=== PATIENT | male | born 1940 | race Caucasian/White ===

== ENCOUNTER 2017-01-21 13:29 | Inpatient (IN) | payer MEDICARE ==
[2017-01-18 10:39] LABS: BASOPHILS 0.5 %; BASOPHILS ABSOLUTE 0.03 10/3/uL (0.0-0.16); EOSINOPHILS 3.7 %; EOSINOPHILS ABSOLUTE 0.23 10/3/uL (0.0-0.53); HEMATOCRIT 43.9 % (40.0-51.0); HEMOGLOBIN 15.5 g/dL (13.6-17.8); IMMATURE GRANULOCYTES 0.3 %; IMMATURE GRANULOCYTES ABSOLUTE 0.02 10/3/uL (0.0-0.11); LYMPHOCYTES 39.5 %; LYMPHOCYTES ABSOLUTE 2.43 10/3/uL (0.67-4.30); MEAN CORPUSCULAR HEMOGLOB 32.3 pg (26.0-34.0); MEAN PLATELET VOLUME 10.3 fL (9.2-13.0); MONOCYTES 9.1 %; MONOCYTES ABSOLUTE 0.56 10/3/uL (0.21-1.20); NEUTROPHILS 46.9 %; NEUTROPHILS ABSOLUTE 2.88 10/3/uL (2.02-8.40); PLATELET COUNT 214 10/3/uL (150-400); RBC DISTRIBUTION WIDTH 12.4 % (12.0-16.0); WHITE BLOOD CELLS 6.2 10/3/uL (4.5-10.5)
[2017-01-18 10:40] LABS: MANUAL DIFF NO %; MEAN CORPUS HGB CONC 35.3 g/dL (32.0-36.0); MEAN CORPUSCULAR VOLUME 91.5 fL (80-100)
[2017-01-18 10:46] LABS: INTERNATIONAL NORMAL RATI 1.1 UNITS (-); PARTIAL THROMBO TIME 28.1 SEC (22.5-37.2); PROTIME (NOT ORD) 14.1 SEC (12.0-14.5)
[2017-01-18 10:56] LABS: ALKALINE PHOSPHATASE 67 U/L (45-117); BUN (BLOOD UREA NITROGEN) 12 MG/DL (6-23); CALCIUM, SERUM 8.8 MG/DL (8.5-10.4); CHLORIDE, SERUM 108 MMOL/L (96-112); CO2 (CARBON DIOXIDE) 22 MMOL/L (24-34); GFR AFRICAN AMERICAN 101 ML/MIN (>=60); GFR NON AFRICAN AMERICAN 87 ML/MIN (>=60); GLOBULIN 4.1 G/DL (2.5-4.1); GLUCOSE, SERUM 113 MG/DL (60-99); SGOT(AST) 55 U/L (5-40); SGPT(ALT) 48 U/L (5-65); SODIUM, SERUM 142 MMOL/L (135-148); TOTAL PROTEIN 8.1 G/DL (6.0-8.5)
--- NOTE | ~2017-01-21 | DS ---
Discharge Summary [facility] [address] [place]. [address] NAME: ARIADNA ROBLERO : 42 STATUS : DIS IN PAT#: [id number] AGE: 76 ADM/REG DATE : 01/21/17 MR#: [id number] REPORT SERV DATE: 02/04/17 DICTATED BY: PADMINI RIOS III DATE: 02/03/17 REPORT STATUS : Draft TRANSCRIBED BY: KRISHNA DATE: 02/03/17 Data Collection from hospitalization DISCHARGE DIAGNOSES: 1. Tubular adenoma of the right colon - too large to be removed endoscopically. 2. Hypertension. 3. Hyperlipidemia. 4. Arthritis. 5. Hypothyroidism. CONSULTATIONS: None. PROCEDURES PERFORMED: 1. Laparoscopic right colectomy with resection of terminal ileum and ileocolonic anastomosis on 01/21/2017. 2. CT scan of the abdomen and pelvis without contrast on 01/24/2017. PATHOLOGY: Terminal ileum and colon, right colectomy - 5.2 cm tubulovillous adenoma. No high-grade dysplasia seen. Margins free. Chronic diverticular disease. Nine benign lymph nodes. Normal appendix. MEDICATIONS: Lopid 600 mg twice a day, levothyroxine 75 mcg daily, Cozaar 100 mg at bedtime, Percocet 7.5/325 one tablet three times a day as needed, and Zocor 10 mg every morning. CONDITION AT DISCHARGE: Stable. DISPOSITION: The patient was discharged home on a full-liquid diet that would be advanced as tolerated and activities as instructed. He would follow up with me on 02/11/2017. HOSPITAL COURSE: This is a 76-year-old man who was recently found to have a 3 cm tubular adenoma of the right colon, this was distal to the ileocecal valve. It was too large to be removed endoscopically. It was felt that laparoscopic right colectomy and possible laparotomy was indicated. Treatment options were discussed and it was elected to proceed with surgical intervention. He was admitted to the hospital at this time for further evaluation and treatment. Upon admission, he was taken to the operating room where he underwent the above-mentioned procedure. He tolerated this well, and there were no complications. On postop day #1, he had no new complaints. He was alert and comfortable. He remained afebrile. His Young catheter was removed. Clear liquids were started. On 01/23/2017, he did complain of some cramping. Reglan was given. Dulcolax was provided. We encouraged him to ambulate. Heparin was discontinued secondary to possible blood in his stool. He was evaluated by Physical Therapy. On 01/24/2017, CT scan of the abdomen and pelvis without contrast was performed. He did complain of some abdominal pain and distention. He remained afebrile. Reglan was continued. We encouraged him to ambulate. The next day, he was passing some gas per rectum. His abdomen was a little distended. Dulcolax and Reglan were continued. On Discharge Summary [address] [place]. [address] NAME: ARIADNA ROBLERO : 42 STATUS : DIS IN PAT#: [id number] AGE: 76 ADM/REG DATE : 01/21/17 MR#: [id number] REPORT SERV DATE: 02/04/17 DICTATED BY: PADMINI RIOS III DATE: 02/03/17 REPORT STATUS : Draft TRANSCRIBED BY: KRISHNA DATE: 02/03/17 01/26/2017, he had some nausea and vomiting. An NG tube was placed. His abdomen was soft. He was being held n.p.o. with the NG tube. Repeat KUB was going to be performed. The next day, he was feeling much better. He had a large bowel movement x3. He was passing gas. The NG tube was removed. Clear liquids were started. Discharge planning was performed. On 01/28/2017, he felt well and wanted to go home. He was tolerating liquids and passing stool. He had no nausea or vomiting. Discharge instructions were given. Due to his improved and stable condition, he was discharged home with the above-stated instructions. Information collected by: Camila Barakat I submit the above information as my discharge summary. WILIAM/KRISHNA Padmini Rios III, M.D. / [id number] CC: Padmini Rios III, M.D. DAILY,KRIS
--- NOTE | ~2017-01-21 | PREOPHP ---
PreOp History and Physical [id number] [place]. [address] NAME: ARIADNA ROBLERO : 42 STATUS : ADM IN [facility]#: [id number] AGE: 76 ADM/REG DATE : 01/21/17 MR#: [id number] REPORT SERV DATE: 01/24/17 DICTATED BY: PADMINI RIOS III DATE: 01/13/17 REPORT STATUS : Draft TRANSCRIBED BY: MODSharee DATE: 01/13/17 HISTORY OF PRESENT ILLNESS: This 76-year-old male comes to the operating room for laparoscopic right colectomy, possible laparotomy, for a large tubular adenoma of the right colon. The patient has a history of diarrhea for several months. Workup for this diarrhea included a colonoscopy and was found to have a large 3 cm mass in the cecum. This is too large to be removed endoscopically. Biopsy shows this to be an adenoma. The area was tattooed by the endoscopist. The patient comes to the operating room now for laparoscopic right colectomy, possible laparotomy. PAST MEDICAL HISTORY: 1. Hypertension. 2. Hyperlipidemia. 3. Arthritis. MEDICATIONS: Gemfibrozil, losartan, simvastatin, levofloxacin. FAMILY HISTORY: Positive for colon cancer. SOCIAL HISTORY: No history of tobacco use. The patient does have a history of alcohol use. REVIEW OF SYSTEMS: The patient's 14-point review of systems is otherwise unremarkable except for diarrhea. ALLERGIES: PENICILLIN AND SULFA. PHYSICAL EXAMINATION: GENERAL: Reveals a male, in no acute distress. He is alert and oriented x3. VITAL SIGNS: Blood pressure 142/84, pulse 90, temp 98.6. HEENT: Unremarkable. Cranial nerves II through XII are normal. LUNGS: Clear. CARDIAC: Normal. ABDOMEN: Soft. Nontender. EXTREMITIES: Normal. LABORATORY DATA: Colonoscopy shows a 3 cm mass in the cecum just beyond the ileocecal valve. Biopsy shows this to be a tubular adenoma. ASSESSMENT: 1. A 76-year-old male with biopsy-proven tubular adenoma of the right colon, too large to be removed endoscopically. 2. Hypertension. 3. Hyperlipidemia. 4. Arthritis. PLAN: The patient comes to the operating room now for laparoscopic right colectomy, possible laparotomy. This procedure, the risks, benefits, and alternatives, including not limited to the risk for bleeding, infection, enterotomy, injury to any abdominal structure, postop PreOp History and Physical [address] [address] NAME: ARIADNA ROBLERO : 42 STATUS : ADM IN [facility]#: [id number] AGE: 76 ADM/REG DATE : 01/21/17 MR#: [id number] REPORT SERV DATE: 01/24/17 DICTATED BY: PADMINI RIOS III DATE: 01/13/17 REPORT STATUS : Draft TRANSCRIBED BY: KRISHNA DATE: 01/13/17 small bowel obstruction or ileus, anastomotic leak, requiring reoperation with ileostomy, ureteral injury, possible need for laparotomy, and unforeseen complications including deep venous thrombosis, pulmonary embolus, myocardial infarction, stroke, pneumonia and , have been fully and completely explained to the patient at length prior to surgery. The fact that this is a major operation with risk for major morbidity and mortality has been explained. Expected length of the recovery has been explained. The patient's questions have been answered. He clearly understands the risks and agrees to surgery as planned. ELVER/KRISHNA Padmini Rios III, M.D. / [phone]
--- NOTE | ~2017-01-21 | OP ---
Record Of Operation [facility] [address] [place]. [address] NAME: ARIADNA ROBLERO : 42 STATUS : ADM IN [facility]#: [id number] AGE: 76 ADM/REG DATE : 01/21/17 MR#: [id number] REPORT SERV DATE: 01/21/17 DICTATED BY: PADMINI RIOS III DATE: 01/21/17 REPORT STATUS : Draft TRANSCRIBED BY: MODL DATE: 01/21/17 DATE OF PROCEDURE: 01/21/2017 PREOPERATIVE DIAGNOSIS: Tubular adenoma of the right colon, too large to be removed endoscopically. POSTOPERATIVE DIAGNOSIS: Tubular adenoma of the right colon, too large to be removed endoscopically. PROCEDURE: Laparoscopic right colectomy with resection of terminal ilium and ileocolonic anastomosis. SURGEON: Padmini Rios M.D. ANESTHESIA: General with intubation. COMPLICATIONS: None. ESTIMATED BLOOD LOSS: 25 mL. SPECIMEN: Segment of terminal ileum and right colon. DRAINS: [place] in subcutaneous tissue. LAP AND SPONGE COUNT: Correct x3. BRIEF HISTORY: This 76-year-old male was recently found to have a 3 cm tubular adenoma of the right colon. This was distal to the ileocecal valve. It was too large to be removed endoscopically. It was felt that a laparoscopic right colectomy, possible laparotomy, was indicated. This procedure, the risks, benefits, and alternatives, including but not limited to the risk for bleeding, infection, enterotomy, injury to any abdominal structure, postop small bowel obstruction, ileus, incisional hernia, dehiscence, anastomotic leak, requiring reoperation with ileostomy, ureteral injury, possible need for laparotomy, and unforeseen complications including deep venous thrombosis, pulmonary embolus, myocardial infarction, stroke, pneumonia, , were fully and completed explained to the patient's family prior to surgery. The fact that this was a major operation with risk for major morbidity and mortality has been explained as well as expected length of recovery of both open and laparoscopic procedures. The patient had questions, which were answered. He fully understood the risks and agreed to surgery as planned. DESCRIPTION OF PROCEDURE: After being properly identified and after discussing risks of surgery with the patient's family again in the preoperative area and after an appropriate bowel preparation at home, the patient was taken to the operating room and placed in the supine position on the operating room table. General anesthesia was administered and he was intubated without difficulty. A Young catheter was inserted. The abdomen was prepped and draped sterilely in the usual fashion. After an appropriate "time-out" per [facility] standards, Record Of Operation [facility] [address] [place]. [address] NAME: ARIADAN ROBLERO : 42 STATUS : ADM IN PAT#: [id number] AGE: 76 ADM/REG DATE : 01/21/17 MR#: [id number] REPORT SERV DATE: 01/21/17 DICTATED BY: PADMINI RIOS III DATE: 01/21/17 REPORT STATUS : Draft TRANSCRIBED BY: MODSharee DATE: 01/21/17 a small transverse incision was made below the umbilicus. It was noted that the patient had a fairly large umbilical hernia. The Veress needle was placed through the incision. Correct position of the needle in the peritoneal cavity was confirmed by the hanging drop test. The abdominal cavity was then insufflated to about 13 mmHg of carbon dioxide. Correct position of the air in the peritoneal cavity was confirmed by palpation. The Veress needle was removed and replaced with 10 mm trocar. The laparoscope was placed through this. A 5 mm trocar was placed in the midline, midway between the umbilicus and xiphoid process, under direct vision with the laparoscope. Another 5 mm trocar was placed in the midline, in the suprapubic area, also under direct vision with the laparoscope. The abdomen was inspected. There was no evidence for carcinomatosis or peritoneal implants or any unusual findings noted. Appropriate instruments were placed through the trocars. The right colon was grasped and retracted medially. Using sharp dissection, the peritoneal reflexion to the right colon was divided along the line of Toldt, from the cecum to the hepatic flexure. We identified the area which had been marked by the endoscopist, which was just proximal to the hepatic flexure. After full mobilization of the colon, a small right subcostal incision was made over the hepatic flexure. The incision was continued through subcutaneous tissue. Hemostasis was controlled with cautery. The incision was continued through all layers of fascia. The abdominal cavity was entered. The right colon was mobilized into the wound. We identified the area, which had been marked by the endoscopist. We selected a point for division of terminal ileum just proximal to the ileocecal valve. A window was made in mesentery to the ileum at this point. A TIA stapler was used about the ileum at this point. We selected a point for division of the transverse colon, beyond the hepatic flexure and beyond the area which had been tattooed by the endoscopist. A window was made in the mesentery of the transverse colon at this point, and a TIA stapler was used about the colon at this point. The mesentery to the right colon was then divided along the base of the mesentery, using the Harmonic Scalpel, so as to perform a correct oncologic dissection to the lymphovascular supply to the right colon. The right colon was thus removed and sent to pathology and interpreted as containing the tumor with clear margins. We then performed a fuou-of-oaoh anastomosis between the divided terminal ileum and proximal transverse colon. This was performed by aligning the antimesenteric border of the small bowel with antimesenteric border the colon with interrupted 3-0 silk sutures. A small opening was then made in the antimesenteric border of the small bowel and the corresponding antimesenteric border of the colon. A TIA stapler was placed through this and fired. The defect created by the stapler was closed with a TA-60 stapler. This staple line was oversewn with interrupted 3-0 silk sutures. The "crotch" of the anastomosis was secured with 3-0 silk sutures. Upon completion of this, the anastomosis was widely patent to palpation, it was not twisted or kinked in anyway, and it was not under any tension. The mesenteric defect was closed with running 3-0 chromic suture. The anastomosis was placed back in the abdominal cavity. It was not twisted or kinked in any way. The area was irrigated copiously with saline, hemostasis was assured. The fascia of this incision was Record Of Operation [address] [place]. [address] NAME: ARIADNA ROBLERO : 42 STATUS : ADM IN PAT#: [id number] AGE: 76 ADM/REG DATE : 01/21/17 MR#: [id number] REPORT SERV DATE: 01/21/17 DICTATED BY: PADMINI RIOS III DATE: 01/21/17 REPORT STATUS : Draft TRANSCRIBED BY: KRISHNA DATE: 01/21/17 closed with a running looped #1 PDS suture in two layers. The subcutaneous tissue was closed with running 3-0 chromic suture over a [place] drain, which was brought out through the lateral aspect of the incision. The trocars were removed. The infraumbilical hernia was repaired. Using sharp dissection, the skin and subcutaneous tissue around the fascial defect anteriorly was mobilized. The fascial edges of the hernia were reapproximated with interrupted 0 Prolene sutures. This came together nicely with no tension, hemostasis was assured. All skin incisions were closed with running subcuticular 4-0 Monocryl stitches. They were injected with 0.5% Marcaine. Dressings were applied. Anesthesia was reversed. The patient taken to the recovery room in stable condition. He tolerated the procedure well. His family was informed of results of surgery. In addition to a laparoscopic right colectomy, umbilical hernia repair was performed as described above. The patient tolerated the procedure well and will remain in the hospital for postoperative care. ELVER/KRISHNA Padmini Rios III, M.D. / [id number] CC: Padmini Rios III, M.D. DAILY,KRIS Stein M.D.
[~2017-01-21 13:29] MED LIST: COZAAR100 MG PO; FLAG500TAB PO; LEVOTHYROXIN75 MCG PO; LOPID6 PO; NEO500 PO; ZOCOR10 PO
[2017-01-22 07:11] LABS: BASOPHILS 0.1 %; BASOPHILS ABSOLUTE 0.01 10/3/uL (0.0-0.16); EOSINOPHILS 0.2 %; EOSINOPHILS ABSOLUTE 0.02 10/3/uL (0.0-0.53); IMMATURE GRANULOCYTES 0.4 %; IMMATURE GRANULOCYTES ABSOLUTE 0.04 10/3/uL (0.0-0.11); LYMPHOCYTES 13.3 %; LYMPHOCYTES ABSOLUTE 1.39 10/3/uL (0.67-4.30); MEAN CORPUS HGB CONC 34.5 g/dL (32.0-36.0); MEAN CORPUSCULAR HEMOGLOB 31.6 pg (26.0-34.0); MEAN CORPUSCULAR VOLUME 91.8 fL (80-100); MEAN PLATELET VOLUME 10.2 fL (9.2-13.0); MONOCYTES 11.9 %; MONOCYTES ABSOLUTE 1.24 10/3/uL (0.21-1.20); NEUTROPHILS 74.1 %; NEUTROPHILS ABSOLUTE 7.72 10/3/uL (2.02-8.40); PLATELET COUNT 166 10/3/uL (150-400); RBC DISTRIBUTION WIDTH 12.5 % (12.0-16.0); RED CELL COUNT 3.89 10/6/uL (4.7-6.1)
[2017-01-22 07:15] LABS: HEMATOCRIT 35.7 % (40.0-51.0); HEMOGLOBIN 12.3 g/dL (13.6-17.8); MANUAL DIFF NO %; WHITE BLOOD CELLS 10.4 10/3/uL (4.5-10.5)
[2017-01-22 07:28] LABS: BUN (BLOOD UREA NITROGEN) 10 MG/DL (6-23); CALCIUM, SERUM 8.1 MG/DL (8.5-10.4); CHLORIDE, SERUM 105 MMOL/L (96-112); CO2 (CARBON DIOXIDE) 21 MMOL/L (24-34); CREATININE 1.46 MG/DL (0.70-1.30); GFR AFRICAN AMERICAN 54 ML/MIN (>=60); GFR NON AFRICAN AMERICAN 46 ML/MIN (>=60); GLUCOSE, SERUM 143 MG/DL (60-99); POTASSIUM, SERUM 4.1 MMOL/L (3.5-5.3); SODIUM, SERUM 138 MMOL/L (135-148)
[2017-01-23 04:28] LABS: BASOPHILS 0.1 %; BASOPHILS ABSOLUTE 0.01 10/3/uL (0.0-0.16); EOSINOPHILS 2.1 %; EOSINOPHILS ABSOLUTE 0.17 10/3/uL (0.0-0.53); HEMATOCRIT 37.1 % (40.0-51.0); HEMOGLOBIN 12.9 g/dL (13.6-17.8); IMMATURE GRANULOCYTES 0.4 %; IMMATURE GRANULOCYTES ABSOLUTE 0.03 10/3/uL (0.0-0.11); LYMPHOCYTES 18.6 %; LYMPHOCYTES ABSOLUTE 1.51 10/3/uL (0.67-4.30); MEAN CORPUS HGB CONC 34.8 g/dL (32.0-36.0); MEAN CORPUSCULAR HEMOGLOB 32.7 pg (26.0-34.0); MEAN CORPUSCULAR VOLUME 93.9 fL (80-100); MEAN PLATELET VOLUME 10.5 fL (9.2-13.0); MONOCYTES 11.6 %; MONOCYTES ABSOLUTE 0.94 10/3/uL (0.21-1.20); NEUTROPHILS 67.2 %; NEUTROPHILS ABSOLUTE 5.44 10/3/uL (2.02-8.40); PLATELET COUNT 163 10/3/uL (150-400); RBC DISTRIBUTION WIDTH 12.2 % (12.0-16.0); RED CELL COUNT 3.95 10/6/uL (4.7-6.1); WHITE BLOOD CELLS 8.1 10/3/uL (4.5-10.5)
[2017-01-23 04:29] LABS: MANUAL DIFF NO %
[2017-01-23 04:42] LABS: BUN (BLOOD UREA NITROGEN) 8 MG/DL (6-23); CALCIUM, SERUM 8.2 MG/DL (8.5-10.4); CHLORIDE, SERUM 110 MMOL/L (96-112); CO2 (CARBON DIOXIDE) 23 MMOL/L (24-34); GFR AFRICAN AMERICAN 76 ML/MIN (>=60); GFR NON AFRICAN AMERICAN 65 ML/MIN (>=60); GLUCOSE, SERUM 120 MG/DL (60-99); POTASSIUM, SERUM 3.9 MMOL/L (3.5-5.3); SODIUM, SERUM 142 MMOL/L (135-148)
[2017-01-24 07:14] LABS: BASOPHILS 0.1 %; BASOPHILS ABSOLUTE 0.01 10/3/uL (0.0-0.16); EOSINOPHILS 1.9 %; EOSINOPHILS ABSOLUTE 0.14 10/3/uL (0.0-0.53); HEMATOCRIT 37.4 % (40.0-51.0); HEMOGLOBIN 12.8 g/dL (13.6-17.8); IMMATURE GRANULOCYTES 0.1 %; IMMATURE GRANULOCYTES ABSOLUTE 0.01 10/3/uL (0.0-0.11); LYMPHOCYTES 17.3 %; LYMPHOCYTES ABSOLUTE 1.28 10/3/uL (0.67-4.30); MEAN CORPUS HGB CONC 34.2 g/dL (32.0-36.0); MEAN CORPUSCULAR HEMOGLOB 32.2 pg (26.0-34.0); MEAN PLATELET VOLUME 10.2 fL (9.2-13.0); MONOCYTES ABSOLUTE 1.26 10/3/uL (0.21-1.20); NEUTROPHILS 63.6 %; PLATELET COUNT 169 10/3/uL (150-400); RBC DISTRIBUTION WIDTH 12.3 % (12.0-16.0); RED CELL COUNT 3.98 10/6/uL (4.7-6.1); WHITE BLOOD CELLS 7.4 10/3/uL (4.5-10.5)
[2017-01-24 07:18] LABS: MANUAL DIFF NO %
[2017-01-24 07:29] LABS: CALCIUM, SERUM 8.5 MG/DL (8.5-10.4); CHLORIDE, SERUM 110 MMOL/L (96-112); CO2 (CARBON DIOXIDE) 21 MMOL/L (24-34); CREATININE 0.82 MG/DL (0.70-1.30); GFR AFRICAN AMERICAN 100 ML/MIN (>=60); GFR NON AFRICAN AMERICAN 87 ML/MIN (>=60); POTASSIUM, SERUM 3.9 MMOL/L (3.5-5.3); SODIUM, SERUM 141 MMOL/L (135-148)
[2017-01-24 07:31] LABS: BUN (BLOOD UREA NITROGEN) 4 MG/DL (6-23); GLUCOSE, SERUM 148 MG/DL (60-99)
[2017-01-25 05:26] LABS: BASOPHILS 0 %; EOSINOPHILS 1.2 %; EOSINOPHILS ABSOLUTE 0.13 10/3/uL (0.0-0.53); HEMATOCRIT 36.8 % (40.0-51.0); HEMOGLOBIN 12.8 g/dL (13.6-17.8); IMMATURE GRANULOCYTES 0.3 %; IMMATURE GRANULOCYTES ABSOLUTE 0.03 10/3/uL (0.0-0.11); LYMPHOCYTES 12.5 %; LYMPHOCYTES ABSOLUTE 1.32 10/3/uL (0.67-4.30); MANUAL DIFF NO %; MEAN CORPUS HGB CONC 34.8 g/dL (32.0-36.0); MEAN CORPUSCULAR HEMOGLOB 32.4 pg (26.0-34.0); MEAN CORPUSCULAR VOLUME 93.2 fL (80-100); MEAN PLATELET VOLUME 10.2 fL (9.2-13.0); MONOCYTES 14.6 %; MONOCYTES ABSOLUTE 1.55 10/3/uL (0.21-1.20); NEUTROPHILS 71.4 %; NEUTROPHILS ABSOLUTE 7.56 10/3/uL (2.02-8.40); PLATELET COUNT 190 10/3/uL (150-400); RBC DISTRIBUTION WIDTH 12.1 % (12.0-16.0); RED CELL COUNT 3.95 10/6/uL (4.7-6.1); WHITE BLOOD CELLS 10.6 10/3/uL (4.5-10.5)
[2017-01-25 05:41] LABS: BUN (BLOOD UREA NITROGEN) 4 MG/DL (6-23); CALCIUM, SERUM 8.5 MG/DL (8.5-10.4); CHLORIDE, SERUM 106 MMOL/L (96-112); CO2 (CARBON DIOXIDE) 23 MMOL/L (24-34); CREATININE 0.84 MG/DL (0.70-1.30); GFR AFRICAN AMERICAN 99 ML/MIN (>=60); GFR NON AFRICAN AMERICAN 86 ML/MIN (>=60); GLUCOSE, SERUM 160 MG/DL (60-99); POTASSIUM, SERUM 3.9 MMOL/L (3.5-5.3); SODIUM, SERUM 138 MMOL/L (135-148)
[2017-01-26 05:17] LABS: HEMATOCRIT 36.2 % (40.0-51.0); HEMOGLOBIN 12.6 g/dL (13.6-17.8); MEAN CORPUS HGB CONC 34.8 g/dL (32.0-36.0); MEAN CORPUSCULAR HEMOGLOB 32.4 pg (26.0-34.0); MEAN CORPUSCULAR VOLUME 93.1 fL (80-100); MEAN PLATELET VOLUME 9.8 fL (9.2-13.0); PLATELET COUNT 223 10/3/uL (150-400); RBC DISTRIBUTION WIDTH 12.2 % (12.0-16.0); RED CELL COUNT 3.89 10/6/uL (4.7-6.1)
[2017-01-26 05:21] LABS: MANUAL DIFF YES %; WHITE BLOOD CELLS 5.3 10/3/uL (4.5-10.5)
[2017-01-26 05:28] LABS: BUN (BLOOD UREA NITROGEN) 5 MG/DL (6-23); CALCIUM, SERUM 8.3 MG/DL (8.5-10.4); CHLORIDE, SERUM 106 MMOL/L (96-112); CO2 (CARBON DIOXIDE) 25 MMOL/L (24-34); CREATININE 0.83 MG/DL (0.70-1.30); GFR AFRICAN AMERICAN 100 ML/MIN (>=60); GFR NON AFRICAN AMERICAN 86 ML/MIN (>=60); GLUCOSE, SERUM 154 MG/DL (60-99); POTASSIUM, SERUM 3.6 MMOL/L (3.5-5.3); SODIUM, SERUM 141 MMOL/L (135-148)
[2017-01-26 05:43] LABS: BAND NEUTROPHILS 11 %; EOSINOPHILS 5 %; EOSINOPHILS ABSOLUTE (CALC) 0.27 10/3/uL (0.0-0.53); LYMPHOCYTES 31 %; LYMPHOCYTES ABSOLUTE (CALC) 1.64 10/3/uL (0.67-4.30); MONOCYTES 10 %; MONOCYTES ABSOLUTE (CALC) 0.53 10/3/uL (0.21-1.20); NEUTROPHILS ABSOLUTE (CALC) 2.86 10/3/uL (2.02-8.40); PLATELET ESTIMATE ADQ (ADEQUATE); RBC MORPHOLOGY NORM (NORMAL); SEGMENTED NEUTROPHIL (0) 43 %; TOTAL NUCLEATED CELLS 100
[2017-01-27 05:22] LABS: BASOPHILS 0.2 %; BASOPHILS ABSOLUTE 0.01 10/3/uL (0.0-0.16); EOSINOPHILS 2.8 %; EOSINOPHILS ABSOLUTE 0.16 10/3/uL (0.0-0.53); HEMATOCRIT 36.8 % (40.0-51.0); HEMOGLOBIN 12.8 g/dL (13.6-17.8); IMMATURE GRANULOCYTES 0.2 %; IMMATURE GRANULOCYTES ABSOLUTE 0.01 10/3/uL (0.0-0.11); LYMPHOCYTES 24.7 %; LYMPHOCYTES ABSOLUTE 1.42 10/3/uL (0.67-4.30); MEAN CORPUS HGB CONC 34.8 g/dL (32.0-36.0); MEAN CORPUSCULAR HEMOGLOB 31.5 pg (26.0-34.0); MEAN CORPUSCULAR VOLUME 90.6 fL (80-100); MEAN PLATELET VOLUME 9.8 fL (9.2-13.0); MONOCYTES 17.4 %; NEUTROPHILS 54.7 %; NEUTROPHILS ABSOLUTE 3.15 10/3/uL (2.02-8.40); PLATELET COUNT 236 10/3/uL (150-400); RBC DISTRIBUTION WIDTH 12.2 % (12.0-16.0); RED CELL COUNT 4.06 10/6/uL (4.7-6.1); WHITE BLOOD CELLS 5.8 10/3/uL (4.5-10.5)
[2017-01-27 05:34] LABS: MANUAL DIFF NO %
[2017-01-27 05:39] LABS: BUN (BLOOD UREA NITROGEN) 4 MG/DL (6-23); CALCIUM, SERUM 8.4 MG/DL (8.5-10.4); CHLORIDE, SERUM 105 MMOL/L (96-112); CO2 (CARBON DIOXIDE) 28 MMOL/L (24-34); CREATININE 0.94 MG/DL (0.70-1.30); GFR AFRICAN AMERICAN 92 ML/MIN (>=60); GFR NON AFRICAN AMERICAN 79 ML/MIN (>=60); GLUCOSE, SERUM 138 MG/DL (60-99); POTASSIUM, SERUM 3.7 MMOL/L (3.5-5.3); SODIUM, SERUM 142 MMOL/L (135-148)
[2017-01-28] MEDS ORDERED: PERCOCET 7.5/321 TAB PO (08:02)
== END 2017-01-28 09:29 | disposition home or self-care (01) | DRG 330 ==
LOC: 5SO 13:29
PROVIDERS: Surgery
PROC: 0DBF4ZZ Excision of Right Large Intestine, Percutaneous Endoscopic Approach (ICD-10-PCS; principal; 2017-01-21 07:45)
PROC: 0DBB0ZZ Excision of Ileum, Open Approach (ICD-10-PCS; 2017-01-21 07:45)
PROC: 0D9670Z Drainage of Stomach with Drainage Device, Via Natural or Artificial Opening (ICD-10-PCS; 2017-01-25)
DX: D12.2 Benign neoplasm of ascending colon (principal); K91.3 Postprocedural intestinal obstruction; I10 Essential (primary) hypertension; E78.5 Hyperlipidemia, unspecified; M19.90 Unspecified osteoarthritis, unspecified site; Z79.899 Other long term (current) drug therapy; Z80.0 Family history of malignant neoplasm of digestive organs; Z88.2 Allergy status to sulfonamides; Z88.0 Allergy status to penicillin; Y83.8 Other surgical procedures as the cause of abnormal reaction of the patient, or of later complication, without mention of misadventure at the time of the procedure; Y92.239 Unspecified place in hospital as the place of occurrence of the external cause
CPT/HCPCS: 36415; 71020; 74000; 74020; 74176; 80048; 80053; 82272; 85025; 85610; 85730; 86850; 86900; 86901; 88309; 93005; 97161-GP; A9270-GY; C9113; G8978-CJ-GP; G8980-CJ-GP; J0690; J1885; J2250; J2270; J2370; J2405; J2710; J2765; J2795; J3010